=== PATIENT | male | born 1950 | race Caucasian/White ===

== ENCOUNTER 2023-04-23 13:27 | Observation (INO) | payer MEDICARE, SELFPAY ==
[2023-04-23] VITALS (19 sets, daily range): BP systolic 125–173; BP diastolic 69–90; PULSE 68–99; RESP 16–20; TEMP 36.3–36.8; O2SAT 71–98; BMI 32.0; BMI 31.5
--- NOTE | 2023-04-23 07:09 | IR_ITS ---
APPROVED REPORT Patient Location: Outpatient Supply Chain Intern: ISABELLA Cameron RT (R) PROCEDURES Selective coronary angiogram Drug-eluting stent deployment to the ostial proximal and mid LAD in a contiguous manner Drug-eluting stent deployment to the circumflex artery Drug-eluting stent deployment to the ostial left main artery which extends throughout the entire course of the left main artery A total of 5 drug-eluting stents were used to revascularize patient INDICATION Refusal to undergo bypass surgery, Extensive coronary artery disease, Left ventricular dysfunction Informed consent was obtained prior to the procedure. COMPLICATIONS NONE Estimated Blood Loss: LESS THAN 10 ML TECHNIQUE One percent lidocaine used to anesthetize the right anterior aspect of the wrist. The right radial artery was accessed via the Seldinger technique. A 6 [place] sheath was placed in the right radial artery. 2.5 mg of Verapamil, 800 mcg of nitroglycerin, 1mg Lidocaine and 5000 U Heparin were given through the arterial sheath. The papa catheter was also used to perform selective coronary angiogram. A JL 3 guide catheter as well as an EBU 7.5 guide catheter were used for the percutaneous revascularization. A total of 5 drug-eluting stents were used for the revascularization while 9 balloons were used for the revascularization as well as a guide liner. Using a [place] catheter and a guide liner following therapeutic heparin being administered giving a therapeutic ACT a Choice PT extra-support wire was placed down the LAD. A 2.75 x 38 mm [place] frontier stent was deployed at 18 rubin reducing the stenosis. A 3 mm balloon was deployed in the 2.75 mm stent at 20 rubin which reduced the stenosis. A 2.5 x 15 mm [place] frontier stent was placed distal to the stent yet still overlapping and deployed at 18 rubin. The balloon was brought back and deployed at 20 rubin up and down the 2.75 mm stent. An additional 3.5 x 38 mm [place] frontier stent was placed proximal to the 2.75 mm stent extending back to the left main artery and deployed at 20 rubin. A wire was placed into the circumflex artery through the struts however a 1.25 mm balloon could not be advanced. Because of this the whole apparatus was removed and an EBU 3.5 guide catheter was placed in left main artery. Wires were placed down the LAD as well as the circumflex artery. With the assistance of a guide liner 1.25 mm balloon was used to open the struts going into the circumflex artery. This was followed by a 2 mm balloon to open the struts further. A 2.5 x 26 mm [place] frontier stent was placed in the ostial circumflex artery which extended back and left main artery and extended into the first obtuse marginal artery. This was deployed at 18 rubin. The balloon was brought back into the left main artery and deployed at 22 rubin to further post dilate. Following this a 4 mm x 8 mm [place] frontier stent was placed proximal to the 3.5 mm stent the left main artery and placed in the ostium of the left main artery and deployed at 22 rubin. The balloon was then advanced into the distal left main artery extending into the proximal LAD and deployed at 20 rubin to further post dilate and to make sure the circumflex artery struts were not encroaching upon the LAD itself or left main artery. Following this after achieving excellent angiographic results the apparatus was removed the sheath was removed and hemostasis was achieved using TR banding patient was transferred to the postop holding in stable condition ANGIOGRAPHIC RESULTS The left main artery Has an ostial 20% stenosis and a distal eccentric 30% stenosis The left anterior descending artery Has a proximal eccentric 80% stenosis followed by mid vessel 80 to 90% in-stent restenosis and additional calcific disease The circumflex artery Is nondominant and has an ostial 90% concentric stenosis which extends proximally. The first obtuse marginal artery is small to medium size and has an ostial 70% stenosis. Distal to the first obtuse marginal artery the true circumflex artery which runs in the AV groove has a proximal 80 to 90% stenosis The right coronary artery Is dominant has proximal 40% followed by additional 50% stenoses with mid vessel diffuse 40% stenosis and distal 30% stenosis IMPRESSION Successful reconstruction of the ostial proximal mid distal left main artery with additional reconstruction of the proximal and mid LAD on a contiguous manner with additional bifurcating stents into the circumflex artery Interval loss of a small to medium sized superior branch of the first obtuse marginal artery which was jailed by stenting Persistent moderate disease throughout the right coronary PLAN 1. Continue dual antiplatelet therapy 2. LDL less than 55 to be achieved with high intensity statin 3. Avoidance of tobacco products 4. Patient underwent complex angiography stenting with copious contrast. Patient should be admitted for additional observation as well as given IV fluids in order to reduce risk for contrast nephropathy. 5. Recommend chemistry and CBC in the morning prior to discharge home 6. Cardiac rehabilitation Electronically signed by : Jarett Barnes MD 04/23/2023 14:41:26
[2023-04-23 09:16] LABS: Basophils % 0.5 % (0.1-2.0); Eosinophils # 0.2 K/mm3 (0.0-0.4); Eosinophils % 3.2 % (0.1-12.0); Hemoglobin 15.1 g/dL (14.1-18.0); Lymphocytes # 1.6 K/mm3 (0.7-4.5); Lymphocytes % 20.4 % (10-50); Mean Corpuscular HGB Conc 33.5 g/dL (31.8-35.4); Mean Corpuscular Hemoglobin 31.5 pg (27.0-31.2); Mean Corpuscular Volume 94.3 fl (80-94); Mean Platelet Volume 9.1 fl (7.4-10.4); Monocytes # 0.5 K/mm3 (0.1-1.0); Monocytes % 6.3 % (1.7-9.3); Neutrophils # 5.4 K/mm3 (1.8-7.8); Neutrophils % 69.7 % (37.0-80.0); Platelet Count 162 K/mm3 (142-424); Red Blood Count 4.77 M/mm3 (4.60-6.20); Red Cell Distribution Width 16.4 % (11.5-17.5); White Blood Count 7.7 K/mm3 (4.8-10.8)
[2023-04-23 09:32] LABS: Anion Gap 13.4 mEq/L (5-15); Blood Urea Nitrogen 30 mg/dl (9-20); Calcium 9.4 mg/dl (8.4-10.2); Carbon Dioxide 23 mmol/L (22.0-30.0); Chloride 111 mmol/L (98-107); Creatinine Clearance Estimated 94 mL/min (50-200); Estimated Glomerular Filt Rate 83 ml/min (>60); GFR (African American) 100 ML/MIN (>60); Glucose 107 mg/dl (74-100); Potassium 5.4 mmoL/L (3.5-5.1); Sodium 142 mmol/L (136-145)
[2023-04-23] MEDS: diphenhydrAMINE 50MG/ML VIAL 50 MG IV (11:35)
[2023-04-23] MEDS: VERAPAMIL 2.5MG/ML 2ML VIAL 2.5 MG IV (11:41)
[2023-04-23] MEDS: 0.9 % SODIUM CHLORIDE 500 ML 25 ML IV (11:42)
[2023-04-23] MEDS: LIDOCAINE 1% 10ML MDV 20 ML IJ (11:42)
[2023-04-23] MEDS: NITROGLYCERIN 800MCG/8ML SYR (CATH LAB) 800 MCG IA (11:42)
[2023-04-23] MEDS: HEPARIN 1,000 UNITS/500ML NS (CATH LAB) 3000 UNIT IV (11:42)
[2023-04-23] MEDS: MIDAZOLAM HCL 1MG/1ML 5ML VIAL 1 MG IV (11:46)
[2023-04-23] MEDS: FENTANYL 100MCG/2ML VIAL 50 MCG IV (11:46)
[2023-04-23] MEDS: HEPARIN 1,000 UNITS/ML 10ML VIAL (CATH LAB) 10000 UNIT IV (12:15)
--- NOTE | 2023-04-23 13:41 | HMH.PHAINT1 ---
Pharmacy Intervention Comments: HOME MEDICATION LIST VERIFIED USING LIST FROM OUTPATIENT PHARMACY
[2023-04-23] MEDS: IOPAMIDOL-370 (76%);100ML BOTTLE 310 ML IV (13:50)
[2023-04-23 13:54] LABS: CATHL Activated Clotting Time 278 SEC (74-125)
[2023-04-23 13:55] LABS: CATHL Activated Clotting Time 281 SEC (74-125)
--- NOTE | 2023-04-23 13:56 | PC.NURSE ---
arrived by lunaer from [employer] [employer]
--- NOTE | 2023-04-23 18:27 | EXP.HP ---
History of Present Illness *Admission Date: 04/23/23 *Reason for visit:: CAD *History of present illness: Patient is a 73-year-old male with past medical history of chronic atrial fibrillation hypertension hyperlipidemia who presented to hospital due to observation after cardiac cath. Patient had a scheduled cardiac cath procedure, patient does not have any complaints including chest pain shortness of breath nausea vomiting diarrhea constipation dysuria fevers and chills. Patient was admitted to hospital for observation after cardiac cath procedure. [facility] Disclaimer: The information contained in this section may have been updated after the patient was seen, as this information can be updated by other users. Medical History (Updated 04/22/23 @ 14:45 by Jarett Barnes MD) Abnormal electrocardiogram [ECG] [EKG] Abnormal findings on cardiac catheterization Chronic a-fib Chronic anticoagulation Coronary artery disease HLD (hyperlipidemia) HTN (hypertension) Social History (Updated 04/21/23 @ 10:59 by Roxann Drake) Smoking Status: Former smoker smoking status stop date: 03/23/23 alcohol intake: current current occupational status: retired Travel in the last 8 weeks: Inside the [place] Review of Systems Review of Systems Review of systems (narrative): as per [facility] Meds Home Medications and Allergies Home Medications Medication Instructions Recorded Confirmed Type amlodipine 10 mg tablet 10 mg PO DAILY 04/21/23 04/23/23 History apixaban 5 mg tablet (Eliquis) 5 mg PO BID 04/21/23 04/23/23 History atorvastatin 80 mg tablet 80 mg PO DAILY 04/21/23 04/23/23 History carvedilol 25 mg tablet 25 mg PO BID 04/21/23 04/23/23 History clopidogrel 75 mg tablet 75 mg PO DAILY 04/21/23 04/23/23 History empagliflozin 10 mg tablet 10 mg PO DAILY 04/21/23 04/23/23 History (Jardiance) fenofibric acid (choline) 135 mg 135 mg PO DAILY 04/21/23 04/23/23 History capsule,delayed release meclizine 12.5 mg tablet 12.5 mg PO BID 04/21/23 04/23/23 History montelukast 10 mg tablet 10 mg PO DAILY 04/21/23 04/23/23 History omeprazole 20 mg capsule,delayed 20 mg PO DAILY 04/21/23 04/23/23 History release potassium chloride 20 mEq 20 meq PO DAILY 04/21/23 04/23/23 History tablet,extended release(part/cryst) sacubitril 24 mg-valsartan 26 mg 1 tab PO BID 04/21/23 04/23/23 History tablet (Entresto) spironolactone 25 mg tablet 25 mg PO DAILY 04/21/23 04/23/23 History torsemide 10 mg tablet 10 mg PO DAILY 04/21/23 04/23/23 History New Prescriptions to Start Prescriptions: Allergies Allergy/AdvReac Type Severity Reaction Status Date / Time No Known Allergies Allergy Verified 04/21/23 11:00 Exam Data for Last 24 hours Vital signs and Labs for Last 24 Hours: Temp Pulse Resp BP Pulse Ox O2 Del Method 98.0 F 69 16 125/80 97 Room Air 04/23/23 17:40 04/23/23 17:40 04/23/23 17:40 04/23/23 17:40 04/23/23 17:40 04/23/23 17:40 Laboratory Results - last 24 hr 04/23/23 09:00: WBC 7.7, RBC 4.77, Hgb 15.1, Hct 45.0, MCV 94.3 H, MCH 31.5 H, MCHC 33.5, RDW 16.4, Plt Count 162, MPV 9.1, Neut % (Auto) 69.7, Lymph % (Auto) 20.4, [place] % (Auto) 6.3, Eos % (Auto) 3.2, Baso % (Auto) 0.5, Neut # (Auto) 5.4, Lymph # (Auto) 1.6, [place] # (Auto) 0.5, Eos # (Auto) 0.2, Baso # (Auto) 0.0, Sodium 142, Potassium 5.4 H, Chloride 111 H, Carbon Dioxide 23, Anion Gap 13.4, BUN 30 H, Creatinine 0.90, Estimated Creat Clear 94, Estimated GFR 83, Est GFR ( Amer) 100, Glucose 107 H, Calcium 9.4 04/23/23 13:33: Activated Clotting Time 281 H* 04/23/23 14:03: Activated Clotting Time 278 H* I & O for Last 24 hours: Intake & Output 04/20/23 04/21/23 04/22/23 04/23/23 23:59 23:59 23:59 23:59 Output Total 0 / 0 Balance 0 / 0 Weight 99.79 kg Constitutional Constitutional: no acute distress *Routine HEENT Exam Head: Present normocephalic Eye: Present EOMI and PERRL ENT: Present mucous membranes moist *Routine Neck Exam Neck: Present supple; Absent lymphadenopathy *Routine Respiratory Exam Respiratory: Present CTA bilaterally *Routine Cardiovascular Exam Cardiovascular: Present RRR *Routine Abdominal Exam Abdominal: Present soft and normoactive bowel sounds; Absent tenderness *Routine Rectal Exam Rectal:: deferred *Routine Genitalia Exam Genitalia:: deferred *Routine Extremities Exam Extremities: Absent cyanosis, clubbing or edema *Routine Skin Exam Skin: Present warm; Absent rash *Routine Neurological Exam Neurological: Present alert and oriented X3 Assessment and Plan *Assessment and plan (1) Abnormal findings on cardiac catheterization: Status: Acute Category: Medical Code(s): R93.1 - Abnormal findings on diagnostic imaging of heart and coronary circulation (2) Abnormal electrocardiogram [ECG] [EKG]: Status: Acute Category: Medical Code(s): R94.31 - Abnormal electrocardiogram [ECG] [EKG] (3) Chronic anticoagulation: Status: Acute Category: Medical Code(s): Z79.01 - senior living (current) use of anticoagulants (4) Chronic a-fib: Status: Acute Category: Medical Code(s): I48.20 - Chronic atrial fibrillation, unspecified (5) HLD (hyperlipidemia): Status: Acute Qualifiers: Hyperlipidemia type: mixed hyperlipidemia Qualified Code(s): E78.2 - Mixed hyperlipidemia Category: Medical Code(s): E78.5 - Hyperlipidemia, unspecified (6) HTN (hypertension): Status: Acute Qualifiers: Hypertension type: primary hypertension Qualified Code(s): I10 - Essential (primary) hypertension Category: Medical Code(s): I10 - Essential (primary) hypertension (7) Coronary artery disease: Status: Acute Qualifiers: Coronary Disease-Associated Artery/Lesion type: [place] artery [place] vs. transplanted heart: [place] heart Associated angina: with unstable angina Qualified Code(s): I25.110 - Atherosclerotic heart disease of [place] coronary artery with unstable angina pectoris Category: Medical Code(s): I25.10 - Atherosclerotic heart disease of [place] coronary artery without angina pectoris Plan Patient is a 73-year-old male with past medical history of chronic atrial fibrillation hypertension hyperlipidemia who presented to hospital due to observation after cardiac cath. Patient had a scheduled cardiac cath procedure, patient does not have any complaints including chest pain shortness of breath nausea vomiting diarrhea constipation dysuria fevers and chills. Patient was admitted to hospital for observation after cardiac cath procedure. Assessment History of CAD s/p cardiac cath Chronic atrial fibrillation Hypertension Hyperlipidemia Plan Patient had coronary stenting performed Patient will be started on DAPT Consult cardiology Monitor on cardiac telemetry Resume home medication including Eliquis, statin, Coreg, Plavix, Jardiance, aspirin DVT prophylaxis-on Eliquis
--- NOTE | 2023-04-23 19:13 | PC.NURSE ---
home medications restarted. pt states he took his am meds but is unaware of what exactly the medications are. held 1830 meds. cb in reach pt doing well at this time.
[2023-04-23] MEDS: LOKELMA 5GM PACKET 10 GM PO (20:32)
[2023-04-23] MEDS: ATORVASTATIN 40MG TABLET 80 MG PO (20:32)
[2023-04-23] MEDS: MECLIZINE 12.5MG TABLET 12.5 MG PO (20:33)
[2023-04-23] MEDS: PANTOPRAZOLE 40MG TABLET 40 MG PO (20:34)
[2023-04-23] MEDS: CARVEDILOL 25MG TABLET 25 MG PO (20:34)
--- NOTE | 2023-04-23 22:44 | PC.NURSE ---
ROUNDED ON PT AT 1999. PT REFUSED BATH. GAVE PT SNACK
[2023-04-24] VITALS: BP 109/72; PULSE 100; PULSE 92; RESP 17; TEMP 36.9; O2SAT 97
[2023-04-24 04:00] VITALS: BP 136/82; PULSE 65; PULSE 80; RESP 17; TEMP 36.4; O2SAT 97; BMI 31.5
--- NOTE | 2023-04-24 05:00 | PC.NURSE ---
Patient has had a good night. Has slept most of the shift. has had no complaints.
[2023-04-24 06:56] LABS: Basophils % 0.3 % (0.1-2.0); Eosinophils # 0.1 K/mm3 (0.0-0.4); Eosinophils % 0.4 % (0.1-12.0); Hematocrit 42.2 % (42.0-52.0); Hemoglobin 14.2 g/dL (14.1-18.0); Lymphocytes # 1.3 K/mm3 (0.7-4.5); Lymphocytes % 11.1 % (10-50); Mean Corpuscular HGB Conc 33.6 g/dL (31.8-35.4); Mean Corpuscular Hemoglobin 31.8 pg (27.0-31.2); Mean Corpuscular Volume 94.7 fl (80-94); Mean Platelet Volume 8.6 fl (7.4-10.4); Monocytes # 0.7 K/mm3 (0.1-1.0); Monocytes % 5.6 % (1.7-9.3); Neutrophils # 9.9 K/mm3 (1.8-7.8); Neutrophils % 82.6 % (37.0-80.0); Platelet Count 152 K/mm3 (142-424); Red Blood Count 4.46 M/mm3 (4.60-6.20); Red Cell Distribution Width 16.2 % (11.5-17.5)
[2023-04-24 07:04] LABS: Chloride 110 mmol/L (98-107); Potassium 3.3 mmoL/L (3.5-5.1); Sodium 138 mmol/L (136-145)
[2023-04-24 07:07] LABS: Anion Gap 8.3 mEq/L (5-15); Blood Urea Nitrogen 23 mg/dl (9-20); Calcium 9.3 mg/dl (8.4-10.2); Carbon Dioxide 23 mmol/L (22.0-30.0); Creatinine Clearance Estimated 93 mL/min (50-200); Estimated Glomerular Filt Rate 95 ml/min (>60); GFR (African American) 115 ML/MIN (>60); Glucose 118 mg/dl (74-100)
[2023-04-24 07:27] VITALS: BP 127/60; PULSE 90; RESP 17; TEMP 36.8; O2SAT 98
[2023-04-24 08:00] VITALS: PULSE 90
[2023-04-24] MEDS: ASPIRIN EC 81MG TABLET 81 MG PO (09:55)
[2023-04-24] MEDS: SPIRONOLACTONE 25MG TABLET 25 MG PO (09:55)
[2023-04-24] MEDS: CLOPIDOGREL 75MG TAB 75 MG PO (09:55)
[2023-04-24] MEDS: EMPAGLIFLOZIN 10MG TABLET 10 MG PO (09:56)
[2023-04-24] MEDS: FENOFIBRATE 134MG CAPSULE 134 MG PO (09:56)
[2023-04-24] MEDS: CARVEDILOL 25MG TABLET 25 MG PO (09:56)
[2023-04-24] MEDS: TORSEMIDE 20MG TABLET 10 MG PO (09:56)
[2023-04-24] MEDS: MECLIZINE 12.5MG TABLET 12.5 MG PO (09:56)
[2023-04-24] MEDS: AMLODIPINE 10MG TABLET 10 MG PO (09:56)
[2023-04-24 11:10] VITALS: BP 120/74; PULSE 90; RESP 17; TEMP 37.1; O2SAT 97
[2023-04-24 12:00] VITALS: PULSE 85
--- NOTE | 2023-04-24 12:11 | EXP.DC.SUM ---
General Admission date:: 04/23/23 Discharge date: 04/24/23 HPI HPI HPI: Patient is a 73-year-old male with past medical history of chronic atrial fibrillation hypertension hyperlipidemia who presented to hospital due to observation after cardiac cath. Patient had a scheduled cardiac cath procedure, patient does not have any complaints including chest pain shortness of breath nausea vomiting diarrhea constipation dysuria fevers and chills. Patient was admitted to hospital for observation after cardiac cath procedure. Hospital Course Hospital Course Hospital Course: Patient is a 73-year-old male with past medical history of chronic atrial fibrillation hypertension hyperlipidemia who presented to hospital due to observation after cardiac cath. Patient had a scheduled cardiac cath procedure, patient does not have any complaints including chest pain shortness of breath nausea vomiting diarrhea constipation dysuria fevers and chills. Patient was admitted to hospital for observation after cardiac cath procedure. Assessment History of CAD s/p cardiac cath Chronic atrial fibrillation Hypertension Hyperlipidemia Had cardiac cath performed, status post stenting stable for dc on DAPT and eliquis per cardiology, f/u as OP Exam Data for Last 24 hours Vital signs and Labs for Last 24 Hours: Temp Pulse Resp BP Pulse Ox O2 Del Method 98.7 F 90 17 120/74 97 Room Air 04/24/23 11:10 04/24/23 11:10 04/24/23 11:10 04/24/23 11:10 04/24/23 11:10 04/24/23 11:10 Laboratory Results - last 24 hr 04/23/23 13:33: Activated Clotting Time 281 H* 04/23/23 14:03: Activated Clotting Time 278 H* 04/24/23 06:04: WBC 12.0 H D, RBC 4.46 L, Hgb 14.2, Hct 42.2, MCV 94.7 H, MCH 31.8 H, MCHC 33.6, RDW 16.2, Plt Count 152, MPV 8.6, Neut % (Auto) 82.6 H, Lymph % (Auto) 11.1, [place] % (Auto) 5.6, Eos % (Auto) 0.4, Baso % (Auto) 0.3, Neut # (Auto) 9.9 H, Lymph # (Auto) 1.3, [place] # (Auto) 0.7, Eos # (Auto) 0.1, Baso # (Auto) 0.0, Sodium 138, Potassium 3.3 L D, Chloride 110 H, Carbon Dioxide 23, Anion Gap 8.3, BUN 23 H, Creatinine 0.80, Estimated Creat Clear 93, Estimated GFR 95, Est GFR ( Amer) 115, Glucose 118 H, Calcium 9.3 I & O for Last 24 hours: Intake & Output 04/21/23 04/22/23 04/23/23 04/24/23 23:59 23:59 23:59 23:59 Intake Total 360 / 610 490 / 490 Output Total 0 / 0 0 / 0 Balance 360 / 610 490 / 490 Weight 99.79 kg 100.017 kg Constitutional Constitutional: no acute distress *Routine HEENT Exam Head: Present normocephalic Eye: Present EOMI and PERRL ENT: Present mucous membranes moist *Routine Neck Exam Neck: Present supple; Absent lymphadenopathy *Routine Respiratory Exam Respiratory: Present CTA bilaterally *Routine Cardiovascular Exam Cardiovascular: Present RRR *Routine Abdominal Exam Abdominal: Present soft and normoactive bowel sounds; Absent tenderness *Routine Extremities Exam Extremities: Absent cyanosis, clubbing or edema *Routine Skin Exam Skin: Present warm; Absent rash *Routine Neurological Exam Neurological: Present alert and oriented X3 Results Data Completed and Pending Labs on day of discharge: Labs from last 24 hours 04/24/23 04/23/23 04/23/23 06:04 14:03 13:33 WBC 12.0 H D RBC 4.46 L Hgb 14.2 Hct 42.2 MCV 94.7 H MCH 31.8 H MCHC 33.6 RDW 16.2 Plt Count 152 MPV 8.6 Neut % (Auto) 82.6 H Lymph % (Auto) 11.1 [place] % (Auto) 5.6 Eos % (Auto) 0.4 Baso % (Auto) 0.3 Neut # (Auto) 9.9 H Lymph # (Auto) 1.3 [place] # (Auto) 0.7 Eos # (Auto) 0.1 Baso # (Auto) 0.0 Activated Clotting Time 278 H* 281 H* Sodium 138 Potassium 3.3 L D Chloride 110 H Carbon Dioxide 23 Anion Gap 8.3 BUN 23 H Creatinine 0.80 Estimated Creat Clear 93 Estimated GFR 95 Est GFR ( Amer) 115 Glucose 118 H Calcium 9.3 DS: Diagnosis Discharge Diagnosis (1) Abnormal findings on cardiac catheterization: Status: Acute Code(s): R93.1 - Abnormal findings on diagnostic imaging of heart and coronary circulation (2) Abnormal electrocardiogram [ECG] [EKG]: Status: Acute Code(s): R94.31 - Abnormal electrocardiogram [ECG] [EKG] (3) Chronic anticoagulation: Status: Acute Code(s): Z79.01 - [facility] (current) use of anticoagulants (4) Chronic a-fib: Status: Acute Code(s): I48.20 - Chronic atrial fibrillation, unspecified (5) HLD (hyperlipidemia): Status: Acute Code(s): E78.5 - Hyperlipidemia, unspecified Qualifiers: Hyperlipidemia type: mixed hyperlipidemia Qualified Code(s): E78.2 - Mixed hyperlipidemia (6) HTN (hypertension): Status: Acute Code(s): I10 - Essential (primary) hypertension Qualifiers: Hypertension type: primary hypertension Qualified Code(s): I10 - Essential (primary) hypertension (7) Coronary artery disease: Status: Acute Code(s): I25.10 - Atherosclerotic heart disease of [place] coronary artery without angina pectoris Qualifiers: Coronary Disease-Associated Artery/Lesion type: [place] artery [place] vs. transplanted heart: [place] heart Associated angina: with unstable angina Qualified Code(s): I25.110 - Atherosclerotic heart disease of [place] coronary artery with unstable angina pectoris Meds Home Medications and Allergies Home Medications Medication Instructions Recorded Confirmed Type amlodipine 10 mg tablet 10 mg PO DAILY 04/21/23 04/23/23 History apixaban 5 mg tablet (Eliquis) 5 mg PO BID 04/21/23 04/23/23 History atorvastatin 80 mg tablet 80 mg PO DAILY 04/21/23 04/23/23 History carvedilol 25 mg tablet 25 mg PO BID 04/21/23 04/23/23 History clopidogrel 75 mg tablet 75 mg PO DAILY 04/21/23 04/23/23 History empagliflozin 10 mg tablet 10 mg PO DAILY 04/21/23 04/23/23 History (Jardiance) fenofibric acid (choline) 135 mg 135 mg PO DAILY 04/21/23 04/23/23 History capsule,delayed release meclizine 12.5 mg tablet 12.5 mg PO BID 04/21/23 04/23/23 History montelukast 10 mg tablet 10 mg PO DAILY 04/21/23 04/23/23 History omeprazole 20 mg capsule,delayed 20 mg PO DAILY 04/21/23 04/23/23 History release potassium chloride 20 mEq 20 meq PO DAILY 04/21/23 04/23/23 History tablet,extended release(part/cryst) sacubitril 24 mg-valsartan 26 mg 1 tab PO BID 04/21/23 04/23/23 History tablet (Entresto) spironolactone 25 mg tablet 25 mg PO DAILY 04/21/23 04/23/23 History torsemide 10 mg tablet 10 mg PO DAILY 04/21/23 04/23/23 History New Prescriptions to Start Prescriptions: Allergies Allergy/AdvReac Type Severity Reaction Status Date / Time No Known Allergies Allergy Verified 04/21/23 11:00 Discharge Plan Disposition Patient Disposition: Home, Self-Care Follow up Plan Follow up with: Jarett Barnes MD [Staff Physician] - 05/03/23 9:45 am Prescriptions/Medication Reconciliation: Continued atorvastatin 80 mg tablet 80 mg PO DAILY carvedilol 25 mg tablet 25 mg PO BID torsemide 10 mg tablet 10 mg PO DAILY meclizine 12.5 mg tablet 12.5 mg PO BID clopidogrel 75 mg tablet 75 mg PO DAILY spironolactone 25 mg tablet 25 mg PO DAILY potassium chloride 20 mEq tablet,ER particles/crystals 20 meq PO DAILY amlodipine 10 mg tablet 10 mg PO DAILY omeprazole 20 mg capsule,delayed release(DR/EC) 20 mg PO DAILY montelukast 10 mg tablet 10 mg PO DAILY fenofibric acid (choline) 135 mg capsule,delayed release(DR/EC) 135 mg PO DAILY Eliquis 5 mg tablet 5 mg PO BID Jardiance 10 mg tablet 10 mg PO DAILY Entresto 24-26 mg tablet 1 tab PO BID Problem Reconciliation Problems Reviewed?: Yes Patient Discharge Instructions ACTIVITY: Ambulate as tolerated DIET: continue same diet Patient Instructions: DI for Cardiac Catheterization, DI for Surgical Site Infection Providers Primary Care Provider: Unruly Gonzalez Provider: Neela Saunders Attending Provider: Neela Saunders
--- NOTE | 2023-04-26 15:45 | SW/DCPLANNER ---
Follow up phone call w/ patient's son: patient is doing well at this time. Patient is staying w/ his son and does not have any needs at this time.
== END 2023-04-24 13:10 | disposition home or self-care (01) ==
LOC: 2ND 13:27
PROVIDERS: Internal Medicine; Admitting Provider Internal Medicine; PCP Family Medicine; Visit Provider Internal Medicine
DX: R93.1 Abnormal findings on diagnostic imaging of heart and coronary circulation (principal); R94.31 Abnormal electrocardiogram [ECG] [EKG]; Z79.01 Long term (current) use of anticoagulants; I48.20 Chronic atrial fibrillation, unspecified; E78.2 Mixed hyperlipidemia; I10 Essential (primary) hypertension; I25.110 Atherosclerotic heart disease of native coronary artery with unstable angina pectoris; Z79.899 Other long term (current) drug therapy
CPT/HCPCS: 36415; 80048; 85025; 85347; 92928; 99152; 99153; C1725; C1760; C1769; C1876; C9600; G0378; J1644; Q9967

== ENCOUNTER 2023-05-03 09:01 | Outpatient (CLI) | payer MEDICARE, SELFPAY ==
[2023-05-03 10:51] LABS: Chloride 109 mmol/L (98-107); Potassium 3.4 mmoL/L (3.5-5.1); Sodium 139 mmol/L (136-145)
[2023-05-03 10:54] LABS: Anion Gap 8.4 mEq/L (5-15); Blood Urea Nitrogen 21 mg/dl (9-20); Calcium 8.7 mg/dl (8.4-10.2); Carbon Dioxide 25 mmol/L (22.0-30.0); Estimated Glomerular Filt Rate 83 ml/min (>60); GFR (African American) 100 ML/MIN (>60); Glucose 113 mg/dl (74-100)
== END 2023-05-03 23:59 ==
PROVIDERS: Visit Provider Internal Medicine
DX: I25.10 Atherosclerotic heart disease of native coronary artery without angina pectoris (principal)
CPT/HCPCS: 36415; 80048

== ENCOUNTER 2023-10-19 14:03 | Outpatient (CLI) | payer MEDICARE, SELFPAY ==
--- NOTE | 2023-10-19 14:04 | CA_ITS ---
APPROVED REPORT EXAM: Comprehensive 2D, Doppler, and color-flow Echocardiogram Construction Contractor: Pamela Boyd, STEVIE, RVS Ht: 5 ft 10 in Wt: 230lbs BSA: 2.21 BP: 126/75 mmHg Indications: ICM, CAD, Afib, HTN, HLD, HF 2D Dimensions IVSd 1.22 cm LVEF (Visual) 31.70 % PWd 1.15 cm LA Volume 183.70 mL LVDd 6.56 cm LA Volume Index 82.480262 mL/m2 (M/F) 16-34 LVDs 5.55 cm Left Atrium 5.75 cm M-Mode Dimensions RVDd 2.63 cm (0.9-2.6) LA Diam 6.19 cm (1.9-4.0) LVDd 6.81 cm (3.5-5.7) LVDs 5.43 cm (3.5-5.7) IVSd 1.02 cm (0.6-1.1) PWd 0.98 cm (0.6-1.1) EF (Teich) 40.40% EPSs 3.32 cm FS 20.30% EDV (Teich) 240.00 mL TAPSE 1.22 (<1.7) ESV (Teich) 143.10 mL LV Diastology E Decel Time 137 (160-240 msec) E/A Ratio 2.30 MED A' 2.10 cm/s LAT A' 3.30 cm/s Aortic Valve JAYMIE Index 0.86 cm2/m2 AoV Peak Kemal. 128.0 (50-130 cm/s) AI PHT 419.00 ms AO Peak GR. 6.50 mmHg AO Mean GR. 3.30 (<5 mmHg) AO VTI 25.7 (18-25 cm) JAYMIE (VTI) 1.95 (2.5-4.5 cm2) Mitral Valve MV A Velocity 38.0 (40-130 cm/s) E/A Ratio 2.30 Pulmonary Valve PV Peak Velocity 66.0 (50-150 cm/s) PA End VMAX 158.0 cm/s Tricuspid Valve TR P. Velocity 206.00 cm/s RAP Estimate 10.00 mmHg RVSP 27.00 mmHg Left Ventricle The left ventricle is normal size. Left ventricular systolic function is mild to moderately decreased. There is increased LV wall thickness. There is mild to moderate global hypokinesis. There is severe hypokinesis of the inferior, inferolateral, lateral, and anterolateral LV ware. Diastolic function is indeterminate. LVEF is 40%. Right Ventricle The right ventricle is normal size. The right ventricular systolic function is normal. Atria Left atrium is severely dilated. Right atrium is severely dilated. There is no Doppler evidence of interatrial shunt. Aortic Valve The aortic valve is mildly thickened. There is no aortic valvular stenosis. Mild aortic regurgitation. Mitral Valve The mitral valve leaflets are mildly thickened. No evidence of mitral valve stenosis. Mild to moderate mitral regurgitation. The MR jet is eccentric and may be underestimated on TTE. Tricuspid Valve The tricuspid valve leaflets are thin and pliable. Mild tricuspid regurgitation. RVSP is 20-25 mmHg. Pulmonic Valve The pulmonary valve is normal in structure. Mild pulmonic regurgitation. Great Vessels The aortic root is normal in size. The ascending aorta is not well-visualized. IVC is normal in size and collapses >50% with inspiration. Pericardium There is no pericardial effusion. Other Information Study Quality: Fair Conclusion Mild to moderate reduction global LV systolic function (LVEF 40%). Severe hypokinesis of the inferior, inferolateral, lateral, and anterolateral LV ware. Severe biatrial dilation. Mild to moderate MR. The MR jet is eccentric and may be underestimated. Mild AI, mild TR, mild PI. Electronically signed by : Jacey Lopez MD 10/20/2023 00:20:18
== END 2023-10-19 23:59 | disposition home or self-care (01) ==
LOC: RT 14:04
PROVIDERS: Visit Provider Physician Assistant
DX: I50.20 Unspecified systolic (congestive) heart failure (principal); I51.7 Cardiomegaly
CPT/HCPCS: 93306